=== PATIENT | male | born 1955 ===

== ENCOUNTER 2024-10-23 08:45 | Day surgery (SDC) | payer OTHER ==
[~2024-10-23 08:45] MED LIST: SIMVASTATIN20 MG PO; VASOTEC10 MG PO
[2024-10-23] MEDS ORDERED: CEFTRIAXONE SODIUM 2,000 MG VIAL ONE (09:39)
[2024-10-23] MEDS ORDERED: METRONIDAZOLE/SODIUM CHLORIDE 500 MG/100 ML PIGGYBACK IV ONE (09:40)
== END 2024-10-23 16:35 | disposition home or self-care (01) ==
LOC: CIR.AMB 08:45
PROVIDERS: ATTEND Colon & Rectal Surgery
DX: K60.1 Chronic anal fissure (principal); K92.1 Melena